=== PATIENT | female | born 1985 | race Two or more races ===

== ENCOUNTER 2022-04-21 22:31 | Emergency (ER) | payer SELFPAY ==
[2022-04-21] MEDS ORDERED: LORazepam 2 MG/ML SDV IM ONE (22:49)
[2022-04-21 23:58] LABS: TROPONIN I HIGH SENSITIVITY 5.8 pg/mL (<=60.3)
== END 2022-04-22 00:21 | disposition home or self-care (01) ==
LOC: JP.ED 22:31
DX: F41.9 Anxiety disorder, unspecified (principal); R07.89 Other chest pain; Z98.890 Other specified postprocedural states
CPT/HCPCS: 36415; 80048; 82803; 84484; 85025; 93005; 96372; 99285; J2060